=== PATIENT | female | born 2000 | race Caucasian/White ===

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

== ENCOUNTER → 2019-07-13 | Outpatient (CLI) | payer OTHER ==
[~2019-07-13] MED LIST changes: +CARAFATE1 G1 PO; +PRILOSEC20 M1 PO; +Zofran4 MG SL
== END | disposition home or self-care (01) ==
LOC: MRI 06-29 13:52
DX: Z30.9 Encounter for contraceptive management, unspecified (principal); G44.52 New daily persistent headache (NDPH); J32.3 Chronic sphenoidal sinusitis

== ENCOUNTER → 2019-08-04 | Outpatient (CLI) | payer OTHER | END | disposition home or self-care (01) | LOC: US 14:45 | DX: Z30.41 Encounter for surveillance of contraceptive pills (principal); J01.30 Acute sphenoidal sinusitis, unspecified; I88.9 Nonspecific lymphadenitis, unspecified ==

== ENCOUNTER → 2024-02-29 | Outpatient (CLI) | payer OTHER | END | disposition home or self-care (01) | LOC: LAB 16:14 | PROVIDERS: ATTEND Nurse Practitioner Family | DX: Z12.4 Encounter for screening for malignant neoplasm of cervix (principal) ==